=== PATIENT | female | born 1950 | race Hispanic/Latino ===

== ENCOUNTER 2017-03-08 18:03 | Emergency (ER) | payer MEDICARE ==
[2017-03-08] MEDS ORDERED: ZOFRAN ODT PO ONE (20:17)
[2017-03-08] MEDS ORDERED: ZOFRAN ODT ONE (20:19)
[2017-03-08 20:53] LABS: Basophils # (Auto) 0.1 K/mm3 (0.0-0.1); Basophils % (Auto) 1.4 % (0.0-1.8); Hematocrit 46.8 % (30.3-42.9); Hemoglobin 15.9 gm/dl (10.1-14.3); Lymphocytes # (Auto) 1.8 K/mm3 (1.2-5.4); Lymphocytes % (Auto) 24.4 % (13.4-35.0); Mean Corpuscular HGB Conc 34 % (30-34); Mean Corpuscular Hemoglobin 33 pg (28-32); Mean Corpuscular Volume 98 fl (79-97); Monocytes # (Auto) 0.7 K/mm3 (0.0-0.8); Monocytes % (Auto) 9.5 % (0.0-7.3); Platelet Count 214 K/mm3 (140-440); Red Blood Count 4.78 M/mm3 (3.65-5.03); Red Cell Distribution Width 13.8 % (13.2-15.2)
--- NOTE | 2017-03-08 20:54 | XRay Report ---
FINAL REPORT PROCEDURE: XR CHEST ROUTINE 2V TECHNIQUE: PA and lateral chest radiographs were obtained. CPT 05767 HISTORY: cough COMPARISON: No prior studies are available for comparison. FINDINGS: Heart: Mild cardiomegaly. Mediastinum/Vessels: Normal. Lungs/Pleural space: Lungs are hyperinflated. There are no confluent infiltrates or mass lesions. Pleural spaces are clear.. Bony thorax: No acute osseous abnormality. Other: IMPRESSION: COPD. No acute pulmonary process. Mild cardiomegaly.
[2017-03-08 21:09] LABS: BUN/Creatinine Ratio 24; Blood Urea Nitrogen 17 mg/dL (7-17); Hemolysis Index 11
[2017-03-08 21:30] LABS: Bilirubin,Urine NEG (Negative); Blood,Urine LG (Negative); Color,Urine Amber (Yellow); Mucus,Urine 3+ /HPF; Nitrite,Urine NEG (Negative)
[2017-03-08] MEDS ORDERED: PROVENTIL IH ONE (21:38)
[2017-03-08] MEDS ORDERED: ATROVENT IH ONE (21:38)
[2017-03-08] MEDS ORDERED: NACL 0.9% 1000 ML 1,000 ML IV ONE (21:38)
[2017-03-08] MEDS ORDERED: ZOFRAN IV ONE (21:39)
--- NOTE | 2017-03-08 21:40 | Emergency Department Report ---
Minor Respiratory - HPI Chief Complaint: Upper Respiratory Infection Stated Complaint: FLU N&V Time Seen by Provider: 03/08/17 21:31 Duration: 3 Days Pain Location: Chest Severity: moderate Minor Respiratory: Yes Able to Tolerate Fluids (however the patient has had several episodes of nausea vomiting and feels as though her mouth is very dry), Yes Cough (productive of green sputum), Yes Chest Pain (tightness in the chest) , Yes Shortness of Breath, Yes Fever (subjective), No Rhinorrhea, No Sore Throat , No Ear Pain, No Sick Contacts, No Hemoptysis Other History: Patient has history of atrial fibrillation. Patient states she went to see an urgent care today with [facility] and was sent here for evaluation. Patient was tachycardiac at that time. Patient denies any bodyaches diarrhea ED Review of Systems ROS: Stated complaint: FLU N&V Other details as noted in HPI Comment: All other systems reviewed and negative ED Past Medical Hx - Past Medical History Hx Hypertension: Yes Hx Arthritis: Yes Hx Kidney Stones: Yes Hx Psychiatric Treatment: Yes (Depression) Additional medical history: Thyroid Disease, Hyperlipidemia, Obesity - Surgical History Additional Surgical History: - Social History Smoking Status: Never Smoker Substance Use Type: None - Medications Home Medications: Home Medications Medication Instructions Recorded Confirmed Last Taken Type ALBUTEROL Inhaler [ProAir HFA 2 puff IH QID PRN #1 inhalation 03/09/17 Unknown Rx Inhaler] Azithromycin [Zithromax Z-FELY] 250 mg PO DAILY #6 tablet 03/09/17 Unknown Rx Benzonatate [Tessalon Perle] 100 mg PO Q8HR #12 capsule 03/09/17 Unknown Rx predniSONE [Deltasone] 20 mg PO QDAY 5 Days tab 03/09/17 Unknown Rx Minor Respiratory Exam - Exam General: Vital signs noted. No distress. Alert and acting appropriately. HEENT: No Pharyngeal Erythema, No Pharyngeal Exudates, No Moist Mucous Membranes (dry), No Rhinorrhea, No Conjuctival Injection, No Frontal Tenderness , No Maxillary Tenderness Ear: Neither EAC Pain, Neither EAC Discharge Neck: Yes Supple, No Adenopathy Lungs: Yes Good Air Exchange, Yes Wheezes (diffuse and mild), Yes Cough, No Ronchi, No Stridor, No Labored Respirations, No Retractions, No Use of Accessory Muscles Heart: Yes Regular, No Murmur Abdomen: Yes Normal Bowel Sounds, No Tenderness, No Peritoneal Signs Skin: No Rash Neurologic: Alert and oriented, no deficits. Musculoskeletal: Unremarkable. ED Course Vital Signs 03/08/17 19:49 Temperature 98.5 F Pulse Rate 88 Respiratory 20 Rate Blood Pressure 103/69 O2 Sat by Pulse 100 Oximetry - Reevaluation(s) Reevaluation #1: 03/08/17 21:38 Patient was wheezing on evaluation patient will receive a nebulizer treatment as well as IV fluids and symptomatic care ED Medical Decision Making - Lab Data Result diagrams: 03/08/17 20:36 03/08/17 20:36 - Radiology Data Radiology results: image reviewed No acute process - Medical Decision Making Patient 67-year-old female was presented with cough "congestion and possible pneumonia. Patient is presenting with some dehydration symptoms. Patient was given IV fluids and feels more energized. Patient was given a neb treatment for an hour and does feel better as far as her breathing. Patient's lungs are clear to auscultation bilateral. Patient will be discharged home and given meds for acute bronchitis and nausea vomiting Critical Care Time: No Critical care attestation.: If time is entered above; I have spent that time in minutes in the direct care of this critically ill patient, excluding procedure time. ED Disposition Clinical Impression: Acute bronchitis, Nausea & vomiting Disposition: DC-01 TO HOME OR SELFCARE Is pt being admited?: No Does the pt Need Aspirin: No Condition: Fair Instructions: Acute Bronchitis (ED) Prescriptions: ALBUTEROL Inhaler [ProAir HFA Inhaler] 2 puff IH QID PRN #1 inhalation PRN Reason: Shortness Of Breath Azithromycin [Zithromax Z-FELY] 250 mg PO DAILY #6 tablet Benzonatate [Tessalon Perle] 100 mg PO Q8HR #12 capsule predniSONE [Deltasone] 20 mg PO QDAY 5 Days tab Referrals: WESLEY BRADFORD MD [Primary Care Provider] - 3-5 Days
[2017-03-08] MEDS ORDERED: TESSALON PERLES PO ONE (23:36)
[2017-03-09 00:41] VITALS: BP 102/76
== END 2017-03-09 00:41 | disposition home or self-care (01) ==
LOC: ED 18:03
DX: J20.9 Acute bronchitis, unspecified (principal); R11.2 Nausea with vomiting, unspecified; I10 Essential (primary) hypertension
CPT/HCPCS: 36415; 71046; 80048; 81001; 85025; 87400; 94640; 96361; 96374; 96375; 99284; J2405; J2930; J7030; Q0162

== ENCOUNTER 2017-06-05 12:50 | Outpatient (CLI) | payer MEDICARE ==
--- NOTE | 2017-06-06 12:44 | Mammography Report ---
BILATERAL DIGITAL SCREENING MAMMOGRAM with CAD: 06/05/17 12:50:00 CLINICAL: Routine screening. COMPARISON:None available. FINDINGS: The breasts are heterogeneously dense, which may obscure small masses. No mass, architectural distortion or suspicious calcifications. IMPRESSION: No mammographic evidence of malignancy. BI-RADS CATEGORY: 1 - - Negative RECOMMENDATION: Routine mammographic screening in one year. COMMENT: Patient follow-up letters are generated by our [employer] application.
--- NOTE | 2017-06-06 12:46 | Mammography Report ---
BONE DEXA:06/05/17 13:15:00 CLINICAL: Postmenopausal. No comparison. TECHNIQUE: Two site bone DEXA performed on an Hologic scanner. FINDINGS: The average BMD of the lumbar spine L1-L4 is 0.979g/cm squared with a T-score of -0.6 and a Z-score of 1.2. The average BMD of the left hip is 0.933g/cm squared with a T-score of -0.1 and a Z-score of +1.2. The left femoral neck BMD is 0.727g/cm squared with a T score of -1.1 and Z score of +0.5. IMPRESSION: 1. WHO classification: Normal with average fracture risk based on lumbar spine measurements. 2. WHO classification: Osteopenia with increased fracture risk based on left hip measurements. 3. The FRAX 10 year fracture probability for a major osteoporotic fracture is 7.8%. 4. The FRAX 10 year fracture probability for hip fracture is 0.6%. Note: FRAX version 3.01. Fracture probability calculated for an untreated patient. Fracture probability may be lower if the patient has received treatment. RECOMMENDATION: Clinical correlation and routine screening. DEFINITIONS: BMD = Bone Mineral Density T-score = BMD related to mean peak bone mass of young adult (mean expressed in Standard Deviation) Z-score = Age matched BMD expressed in SD World Health Organization (WHO) Diagnostic Criteria Normal T-score > -1 SD Osteopenia T-score between -1 and -2.4 SD Osteoporosis T-score -2.5 SD or below NOTE: BMD is not the only risk factor for fracture; also consider factors such as the patient's age, risk of falling, previous osteoporotic fracture, family history of osteoporotic fractures, current smoker, and low body weight. All treatment decisions require clinical judgment and consideration of individual patient factors, including patient preferences, comorbidities, previous drug use and risk factors not captured in the FRAX model (e.g. frailty, falls, vitamin D deficiency, increased bone turnover, interval significant decline in BMD). Fracture probability is calculated for an untreated patient. Fracture probability may be lower if the patient has received treatment. Z-scores are not calculated if >80 years of age.
== END 2017-06-05 12:51 | disposition home or self-care (01) ==
LOC: MAMMO 12:50
DX: Z12.31 Encounter for screening mammogram for malignant neoplasm of breast (principal); M81.0 Age-related osteoporosis without current pathological fracture; M85.88 Other specified disorders of bone density and structure, other site; Z78.0 Asymptomatic menopausal state
CPT/HCPCS: 77067; 77080

== ENCOUNTER 2019-01-14 13:21 | Outpatient (CLI) | payer MEDICARE ==
--- NOTE | 2019-01-14 15:25 | Mammography Report ---
DIGITAL SCREENING MAMMOGRAM WITH CAD, 01/14/2019 INDICATION: Routine screening mammography. TECHNIQUE: Digital bilateral 2D mammography was obtained in the craniocaudal and mediolateral obliq ue projections. This examination was interpreted with the benefit of Computer-Aided Detection analysi s. COMPARISON: 06/05/2017 FINDINGS: Breast Density: The breasts are heterogeneously dense, which may obscure small masses. Bilateral asym metries on the cc views require additional imaging. No architectural distortion or suspicious calcifi cations. IMPRESSION: Bilateral asymmetries requiring additional imaging. Recommend recall for bilateral latera l and CC spot compression views and bilateral breast ultrasound if needed. Follow up recommendation: Special View: Spot Category 0: Incomplete. Needs additional imaging evaluation and/or prior mammograms for comparison. A "normal" or negative report should not discourage follow up or biopsy of a clinically significant f inding. A written summary of these findings will be mailed to the patient. The patient will be entered into a mammography reporting system which will generate a reminder letter for the patient's next appointmen t at the appropriate interval. The [employer] recommends yearly mammograms starting at age 40 and continuing as l juan c as a woman is in good health. Breast MRI is recommended for women with an approximate 20-25% or greater lifetime risk of breast cancer, including women with a strong family history of breast or ova mili cancer or who have been treated for Hodgkin's disease. Signer Name: Mykel Hand MD Signed: 01/14/2019 3:21 PM Workstation Name: [id number]
== END 2019-01-14 13:22 | disposition home or self-care (01) ==
LOC: MAMMO 13:21
PROVIDERS: ATTEND Internal Medicine
DX: Z12.31 Encounter for screening mammogram for malignant neoplasm of breast (principal); Z88.0 Allergy status to penicillin; Z88.1 Allergy status to other antibiotic agents; Z88.8 Allergy status to other drugs, medicaments and biological substances
CPT/HCPCS: 77067

== ENCOUNTER 2019-01-27 08:30 | Outpatient (CLI) | payer MEDICARE ==
--- NOTE | 2019-01-28 09:07 | Ultrasound Report ---
DIGITAL BILATERAL DIAGNOSTIC MAMMOGRAM WITH CAD, WITHOUT TOMOSYNTHESIS 01/27/2019 RIGHT COMPLETE BREAST ULTRASOUND INDICATION: ABN MAMMO TECHNIQUE: Digital bilateral mammographic imaging was performed. Spot compression views were obtaine d. Bilateral lateral and right rolled CC views were also obtained. This examination was interpreted w ith the benefit of Computer-aided Detection analysis. Complete right breast ultrasound was performed. COMPARISON: 01/14/2019 Breast Density: The breasts are heterogeneously dense, which may obscure small masses. FINDINGS: Additional bilateral mammographic views are negative. No mass or architectural distortion. Ultrasound of all 4 quadrants and the retroareolar area of the right breast was performed. No mass, c yst or suspicious shadowing. IMPRESSION: No mammographic evidence of malignancy and negative right breast ultrasound. Follow up recommendation: Routine BI-RADS Category 2: Benign. A "normal" or negative report should not discourage follow up or biopsy of a clinically significant f inding. A written summary of these findings will be mailed to the patient. The patient will be entered into a mammography reporting system which will generate a reminder letter for the patient's next appointmen t at the appropriate interval. According to the [employer], yearly mammograms are recommended starting at age 40 and continuing as long as a woman is in good health. Breast MRI is recommended for women with an suhas roximately 20-25% or greater lifetime risk of breast cancer, including women with a strong family his tory of breast or ovarian cancer and women who have been treated for Hodgkin's disease. Signer Name: Mykel Hand MD Signed: 01/28/2019 9:02 AM Workstation Name: [id number]
== END 2019-01-27 08:31 | disposition home or self-care (01) ==
LOC: MAMMO 08:30
PROVIDERS: ATTEND Internal Medicine
DX: R92.8 Other abnormal and inconclusive findings on diagnostic imaging of breast (principal)
CPT/HCPCS: 77066

== ENCOUNTER 2020-01-26 11:20 | Outpatient (CLI) | payer MEDICARE ==
--- NOTE | 2020-01-26 12:31 | Mammography Report ---
DIGITAL SCREENING MAMMOGRAM WITH CAD, 01/26/2020 CLINICAL INFORMATION / INDICATION: Routine screening mammography. TECHNIQUE: Digital bilateral 2D mammography was obtained in the craniocaudal and mediolateral obliqu e projections. This examination was interpreted with the benefit of Computer-Aided Detection analysis . COMPARISON: 01/14/2019 FINDINGS: Breast Density: The breasts are heterogeneously dense, which may obscure small masses. No dominant mass, suspicious calcifications, or architectural distortion in either breast. Benign-appearing bilateral calcifications are again noted. IMPRESSION: No mammographic evidence of malignancy. Follow up recommendation: Routine yearly BI-RADS Category 2: Benign. A "normal" or negative report should not discourage follow up or biopsy of a clinically significant f inding. A written summary of these findings will be mailed to the patient. The patient will be entered into a mammography reporting system which will generate a reminder letter for the patient's next appointmen t at the appropriate interval. The [employer] recommends yearly mammograms starting at age 40 and continuing as l juan c as a woman is in good health. Breast MRI is recommended for women with an approximate 20-25% or greater lifetime risk of breast cancer, including women with a strong family history of breast or ova mili cancer or who have been treated for Hodgkin's disease. Signer Name: Aldo Khan MD Signed: 01/26/2020 12:27 PM Workstation Name: [id number]
== END 2020-01-26 11:21 | disposition home or self-care (01) ==
LOC: MAMMO 11:20
PROVIDERS: ATTEND Internal Medicine
DX: Z12.31 Encounter for screening mammogram for malignant neoplasm of breast (principal); N64.89 Other specified disorders of breast
CPT/HCPCS: 77067

== ENCOUNTER 2021-01-31 10:07 | Outpatient (CLI) | payer MEDICARE ==
--- NOTE | 2021-01-31 11:11 | Mammography Report ---
BILATERAL DIGITAL SCREENING MAMMOGRAM WITH CAD HISTORY: Screening mammogram. TECHNIQUE: Routine digital mammographic imaging performed. This examination was interpreted with nayeli aparicio benefit of Computer-aided Detection analysis. COMPARISON: 01/27/2019, 01/14/2019, 06/05/2017. FINDINGS: Breast Density: heterogeneously dense breast parenchymal pattern which somewhat lessens the sensitivi ty of the evaluation. Digital CC and MLO views demonstrate no mammographic evidence of malignancy. Left slightly lateral f ar posterior breast asymmetry on the CC view is stable. This was previously evaluated and was found t o be benign. Additionally, long-term stability would support a benign etiology. IMPRESSION: No mammographic evidence of malignancy. If the clinical examination remains stable, recommend bilate ral mammogram in approximately one year. BIRADS 2: Benign Finding(s). FURTHER INFORMATION: According to the [employer], yearly mammograms are recommend ed starting at age 40 and continuing as long as a woman is in good health. Clinical Breast Exams shou ld be part of a periodic health exam-about every 3 years for women in their 20s and 30s and every yea r for women 40 and over. Breast self exam is an option for women starting in their 20s. Any breast ch skyler noted on a breast self exam should be reported promptly to the patient's healthcare provider. Br east MRI is recommended for women with an approximately 20-25% or greater lifetime risk of breast can cer, including women with a strong family history of breast or ovarian cancer and women who have been treated for Hodgkin's disease. A negative Mammography report should not discourage follow up or biopsy of a clinically significant f inding and/or abnormality. Dense breast tissue may obscure small neoplasms. The patient will be entered into a reminder system with a target due date for the next screening mamm ogram. Signer Name: Sandro Winter MD Signed: 01/31/2021 11:07 AM Workstation Name: [id number]
== END 2021-01-31 10:08 | disposition home or self-care (01) ==
LOC: MAMMO 10:07
PROVIDERS: ATTEND Internal Medicine
DX: Z12.31 Encounter for screening mammogram for malignant neoplasm of breast (principal); N64.89 Other specified disorders of breast
CPT/HCPCS: 77067